=== PATIENT | male | born 1965 | race Caucasian/White ===

== ENCOUNTER 2022-04-23 10:23 | Emergency (ER) | payer OTHER ==
[~2022-04-23 10:23] MED LIST: ASPIR 8181 MG PO; ATORVASTATIN CA80 MG PO; HCTZ25 MG PO; IRBESARTAN150 MG PO; NORVASC5 MG PO; VASCEPA1 GM PO
[2022-04-23 11:21] LABS: BASOPHIL 0.6 % (0-2); EOSINOPHIL 2.4 % (0-5); HCT 38.9 % (42.0-52.0); HGB 13.3 g/dl (13.2-18.0); LYMPHOCYTE 21.7 % (15-48); MCH 31.5 pg (25.0-31.0); MCHC 34.2 g/dL (32.0-36.0); MCV 92.2 fL (78.0-100.0); MONOCYTE 10.9 % (0-12); MPV 9.2 fL (6.0-9.5); NEUTROPHIL 63.8 % (41-80); NRBC 0.3; PLT 348 K/uL (150-400); RBC 4.22 M/uL (4.70-6.00); RDW 12.8 % (11.5-14.0)
[2022-04-23 11:37] LABS: ALBUMIN 3.9 g/dL (3.4-5.0); BILIRUBIN - TOTAL 0.4 mg/dL (0.2-1.0); BUN/CREAT RATIO (CALC) 15.4 RATIO; CREATININE 0.78 mg/dL (0.67-1.17); GLOBULIN (CALCULATION) 3.1 g/dL; POTASSIUM 3.8 mmol/L (3.5-5.1)
[2022-04-23 11:43] LABS: CORONAVIRUS 2019 SARS-COV-2 NEGATIVE (NEGATIVE); INFLUENZA A NAA NEGATIVE (NEGATIVE)
== END 2022-04-23 14:49 | disposition home or self-care (01) ==
LOC: FER 10:23
PROVIDERS: Internal Medicine
DX: R06.09 Other forms of dyspnea (principal); R42 Dizziness and giddiness; I10 Essential (primary) hypertension; Z20.822 Contact with and (suspected) exposure to COVID-19
CPT/HCPCS: 36415; 70450; 71045; 80053; 83880; 84145; 84484; 85025; 85379; 93005; J7120; U0002